=== PATIENT | female | born 1965 | race Caucasian/White ===

== ENCOUNTER 2020-01-18 12:40 | Outpatient (CLI) | payer MEDICAID ==
[~2020-01-18] VITALS: Ht 154.9 cm; Wt 54.0 kg
[~2020-01-18 12:40] MED LIST: DICL-212 PO; DIPH-423 PO; GABA-532 PO; HYDR-3973 PO; LORA-660 PO; OMEP40CA13 PO; ONDA4TAB12 PO; POTA8TAB46 PO; SENN8.6T73 PO; SUMA100T PO; ZOC40T PO; [UNRECOGNIZED DRUG - CODE] PO
[2020-01-18] MEDS ORDERED: albuterol 2.5 MG/3 ML nebule NEB ONE (13:10)
== END 2020-01-18 23:59 | disposition home or self-care (01) ==
LOC: RT 12:40
PROVIDERS: ATTEND Physician Assistant
DX: J98.8 Other specified respiratory disorders (principal); R06.02 Shortness of breath
CPT/HCPCS: 94060; 94760